=== PATIENT | male | born 1955 | race Caucasian/White ===

== ENCOUNTER 2024-10-12 23:28 | Inpatient (IN) | payer MEDICAID ==
[~2024-10-12] VITALS: Ht 172.7 cm; Wt 49.9 kg
[2024-10-12] MEDS ORDERED: ONDANSETRON 4 MG/2 ML VIAL ONE (23:48)
[2024-10-12] MEDS ORDERED: INSU100V28 SQ (23:56)
[2024-10-13] MEDS: ONDANSETRON 4 MG/2 ML VIAL IV ONE (00:05)
[2024-10-13 00:14] LABS: BASOPHILS % (AUTO) 0.3 % (0.0-2.0); DIFFERENTIAL COMMENT 1; EOSINOPHILS # (AUTO) 0.1 K/uL (0.0-0.7); EOSINOPHILS % (AUTO) 0.7 % (0.0-7.0); HEMATOCRIT 44.8 % (36.7-47.1); HEMOGLOBIN 14.9 g/dL (12.5-16.3); LYMPHOCYTES # (AUTO) 2.3 K/uL (0.8-4.8); LYMPHOCYTES % (AUTO) 29.4 % (20.5-51.5); MEAN CORPUSCULAR HEMOGLOBIN 28.6 uug (23.8-33.4); MEAN CORPUSCULAR HGB CONC 33 g/dL (32.5-36.3); MEAN CORPUSCULAR VOLUME 85.9 fL (73.0-96.2); MONOCYTES # (AUTO) 0.8 K/uL (0.1-1.30); MONOCYTES % (AUTO) 10.4 % (0.0-11.0); NEUTROPHILS # (AUTO) 4.5 K/uL (1.8-8.9); NEUTROPHILS % (AUTO) 59.2 % (38.5-71.5); PLATELET COUNT (AUTO) 198 K/uL (152-348); RED BLOOD CELL COUNT(AUTO) 5.21 MIL/uL (4.06-5.63); WHITE BLOOD COUNT (AUTO) 7.7 K/uL (3.6-10.2)
[2024-10-13] MEDS: IV NORMAL SALINE 500 ML BAG IV ONE ×3 (00:20→02:05)
[2024-10-13] MEDS: ACETAMINOPHEN 500 MG TABLET PO ONE (00:20)
[2024-10-13 00:21] LABS: CREATININE 1.3 mg/dL (0.6-1.3); POTASSIUM 4.4 mmol/L (3.5-5.1)
[2024-10-13] MEDS: KETOROLAC TROMETHAMINE 15 MG INJ IVP ONE (00:21)
[2024-10-13 00:27] LABS: ALBUMIN 4.5 g/dL (3.4-5.0); BILIRUBIN,TOTAL 1.3 mg/dL (0.2-1.0); TOTAL PROTEIN, SERUM 9.2 g/dL (6.4-8.2)
[2024-10-13] MEDS ORDERED: INSULIN REGULAR, HUMAN 1000 UNIT/10 ML VIAL IV ONE (00:30)
[2024-10-13 00:33] LABS: CALCIUM 10.2 mg/dL (8.5-10.1)
[2024-10-13 00:41] LABS: C-REACTIVE PROTEIN 0.07 mg/dL (0.00-0.30)
[2024-10-13] MEDS ORDERED: CEFTRIAXONE /D5W 50ML IVPB **ER PYXIS IV ONE (00:41)
[2024-10-13] MEDS ORDERED: METRONIDAZOLE 500 MG/NS 100ML 100 ML IV ONE (00:41)
[2024-10-13] MEDS ORDERED: MORPHINE SULFATE 4 MG/1 ML DISP.SYRIN ONE ×2 (00:42→02:41)
[2024-10-13] MEDS ORDERED: INSULIN REGULAR, HUMAN 1000 UNIT/10 ML VIAL ONE (00:43)
[2024-10-13] MEDS: MORPHINE SULFATE 4 MG/1 ML DISP.SYRIN IV ONE ×2 (00:49→03:27)
[2024-10-13 00:53] LABS: SITE, VBG LEFT BRACHIAL; VBG AaDO2 92.3 mmHg; VBG BASE EXCESS -13.4 mmol/L (-2.0-3.0); VBG HCO3 11.3 mmol/L (22.0-29.0); VBG MetHb 0.2 % (0.5-1.5); VBG O2HB 92.4 % (0-79.0); VBG PCO2 24.4 mmHg (38.0-54.0); VBG PH 7.284 (7.320-7.430); VBG PO2 69.2 mmHg (23.0-48.0); VBG TOTAL HEMOGLOBIN 14.5 G/dL (13.5-17.5)
[2024-10-13] MEDS: INSULIN REGULAR, HUMAN 1000 UNIT/10 ML VIAL IV ONE (00:54)
[2024-10-13] MEDS: CEFTRIAXONE 1 G in IV DEXTROSE 5% 50 ML IV ONE (01:02)
[2024-10-13] MEDS: METRONIDAZOLE 500 MG/NS 100 ML PIGGYBACK IV ONE (01:30)
[2024-10-13 02:15] LABS: CALCIUM 7.7 mg/dL (8.5-10.1); CREATININE 0.9 mg/dL (0.6-1.3); POTASSIUM 3.6 mmol/L (3.5-5.1)
[2024-10-13] MEDS ORDERED: POTASSIUM CHLORIDE 50 ML ONE ×3 (02:44→08:13)
[2024-10-13 02:58] LABS: PHOSPHOROUS 3.5 mg/dL (2.5-4.9)
[2024-10-13] MEDS: INSULIN REGULAR, HUMAN 100 UNIT in IV NORMAL SALINE 100 ML IV PRN (03:34)
[2024-10-13] MEDS: POTASSIUM CHLORIDE 20 MEQ in IV D5 1/2 NS 1000 ML 1,000 ML IV PRN (03:36)
[2024-10-13 04:25] LABS: CREATININE 0.8 mg/dL (0.6-1.3); POTASSIUM 3.9 mmol/L (3.5-5.1)
[2024-10-13 04:29] LABS: MAGNESIUM 1.6 mg/dL (1.8-2.4); PHOSPHOROUS 2.1 mg/dL (2.5-4.9)
[2024-10-13] MEDS: MAGNESIUM SULFATE/D5W 100 ML IV SCH (05:47)
[2024-10-13] MEDS ORDERED: MAGNESIUM SULFATE/D5W 100 ML ONE (06:12)
[2024-10-13 06:27] LABS: CALCIUM 7.6 mg/dL (8.5-10.1); POTASSIUM 3.4 mmol/L (3.5-5.1)
[2024-10-13 06:31] LABS: PHOSPHOROUS 1.5 mg/dL (2.5-4.9)
[2024-10-13] MEDS ORDERED: INSULIN REGULAR, HUMAN 300 UNITS/3 ML VIAL SQ PRN (06:45)
[2024-10-13] MEDS ORDERED: DEXTROSE 50% 50 ML DISP.SYRIN IV PRN ×2 (06:45→11:45)
[2024-10-13] MEDS: BLOOD SUGAR DIAGNOSTIC 1 EACH STRIP VI SCH ×3 (06:45→11:41)
[2024-10-13] MEDS: INSULIN REGULAR, HUMAN 1000 UNIT/10 ML VIAL SQ PRN ×2 (07:47→11:42)
[2024-10-13] MEDS: IV NS 1000 ML 1,000 ML IV ONE (07:50)
[2024-10-13] MEDS ORDERED: ENOXAPARIN SODIUM 40 MG/0.4 ML DISP.SYRIN SQ ONE (07:52)
[2024-10-13] MEDS: POTASSIUM CHLORIDE 50 ML IV SCH (07:57)
[2024-10-13] MEDS: ENOXAPARIN SODIUM 40 MG/0.4 ML DISP.SYRIN SQ SCH (08:17)
[2024-10-13 09:17] LABS: ALBUMIN 3.1 g/dL (3.4-5.0); BILIRUBIN,DIRECT 0.4 mg/dL (0.0-0.2); BILIRUBIN,TOTAL 0.9 mg/dL (0.2-1.0); TOTAL PROTEIN, SERUM 6.3 g/dL (6.4-8.2)
[2024-10-13] MEDS: POTASSIUM PHOSPHATE MM 15 MMOL in IV NORMAL SALINE 250 ML IV ONE (10:01)
[2024-10-13 11:31] LABS: *BILIRUBIN,URIN 1+ (NEGATIVE); *BLOOD, URINE NEGATIVE (NEGATIVE); *CLARITY,URINE CLEAR (CLEAR); *COLOR,URINE YELLOW (YELLOW); *KETONES,URINE 4+ (NEGATIVE); *PROTEIN,URINE TRACE (NEGATIVE); LEUKOCYTE ESTERASE ,URINE NEGATIVE (NEGATIVE); NITRITE, URINE NEGATIVE (NEGATIVE); PH,URINE 5.5 (5.0-8.0); UGLUCOSE 3+ (NEGATIVE)
[2024-10-13 11:32] LABS: BACTERIA,URINE FEW /HPF (NONE SEEN); WBC,URINE 0-3 /HPF (0-3)
[2024-10-13] MEDS: IV NS 1000 ML 1,000 ML IV PRN (11:45)
[2024-10-13] MEDS ORDERED: FLAS1KIT2 TP (13:29)
[2024-10-13] MEDS ORDERED: FLAS1EAC2 TP (13:29)
[2024-10-13] MEDS ORDERED: ACETAMINOPHEN 325 MG TABLET ONE (15:49)
[2024-10-13] MEDS: ACETAMINOPHEN 325 MG TABLET PO PRN (15:51)
[2024-10-13 17:51] VITALS: BP 106/61; TEMP 98; O2SAT 98
[2024-10-13 19:52] VITALS: BP 106/58; TEMP 97.4; O2SAT 99
[2024-10-13] MEDS: MORPHINE SULFATE 2 MG/1 ML DISP.SYRIN IV PRN (21:06)
[2024-10-13] MEDS: INSULIN REGULAR, HUMAN 300 UNITS/3 ML VIAL SQ PRN (21:40)
[2024-10-13] MEDS: INSULIN GLARGINE,HUM 300 UNITS/3 ML CARTRIDGE SQ SCH (21:41)
[2024-10-14] MEDS: HYDROMORPHONE 1 MG/1 ML DISP.SYRIN IV ONE (01:15)
[2024-10-14 06:11] LABS: HEPATITIS A AB, TOTAL Positive (Negative); HEPATITIS B CORE AB, TOTAL Positive (Negative); HEPATITIS B SURFACE AB, QUAL Reactive (.); HEPATITIS C VIRUS ANTIBODY Reactive (Non Reactive)
[2024-10-14 08:18] LABS: BASOPHILS % (AUTO) 0.6 % (0.0-2.0); EOSINOPHILS % (AUTO) 1.4 % (0.0-7.0); HEMATOCRIT 34.3 % (36.7-47.1); HEMOGLOBIN 11.5 g/dL (12.5-16.3); LYMPHOCYTES # (AUTO) 0.7 K/uL (0.8-4.8); LYMPHOCYTES % (AUTO) 25.6 % (20.5-51.5); MEAN CORPUSCULAR HEMOGLOBIN 28.2 uug (23.8-33.4); MEAN CORPUSCULAR HGB CONC 33 g/dL (32.5-36.3); MEAN CORPUSCULAR VOLUME 84.4 fL (73.0-96.2); MONOCYTES # (AUTO) 0.3 K/uL (0.1-1.30); MONOCYTES % (AUTO) 9.9 % (0.0-11.0); NEUTROPHILS # (AUTO) 1.8 K/uL (1.8-8.9); NEUTROPHILS % (AUTO) 62.5 % (38.5-71.5); PLATELET COUNT (AUTO) 88 K/uL (152-348); RED BLOOD CELL COUNT(AUTO) 4.07 MIL/uL (4.06-5.63); RED CELL DISTRIBUTION WIDTH 15.3 % (12.1-16.2); WHITE BLOOD COUNT (AUTO) 2.9 K/uL (3.6-10.2)
[2024-10-14 08:23] VITALS: BP 127/74; TEMP 97.6; O2SAT 99
[2024-10-14 08:29] LABS: DIFFERENTIAL COMMENT 1
[2024-10-14 08:33] LABS: CALCIUM 8.6 mg/dL (8.5-10.1); CARBON DIOXIDE 27 mmol/L (21-32); CHLORIDE 105 mmol/L (98-107); CREATININE 0.6 mg/dL (0.6-1.3); GLUCOSE 165 mg/dL (74-106); MAGNESIUM 1.7 mg/dL (1.8-2.4); PHOSPHOROUS 2.6 mg/dL (2.5-4.9); POTASSIUM 3.8 mmol/L (3.5-5.1); SODIUM SERUM 141 mmol/L (136-145); UREA NITROGEN, BLOOD 8 mg/dL (7-18)
[2024-10-14] MEDS: MAGNESIUM OXIDE 400 MG TABLET PO ONE (10:49)
[2024-10-14 11:09] VITALS: BP 129/77; TEMP 98.1; O2SAT 96
[2024-10-14] MEDS: ONDANSETRON 4 MG/2 ML VIAL IV PRN (13:59)
[2024-10-14 15:11] VITALS: BP 113/71; TEMP 97.6; O2SAT 98
[2024-10-14] MEDS: GLUCERNA SHAKE 237 ML CAN PO SCH (16:28)
[2024-10-14 19:35] VITALS: BP 114/67; TEMP 98.1; O2SAT 95
[2024-10-15 05:36] VITALS: BP 113/69; TEMP 97.8; O2SAT 97
[2024-10-15 06:50] LABS: CALCIUM 8.9 mg/dL (8.5-10.1); CARBON DIOXIDE 27 mmol/L (21-32); CHLORIDE 104 mmol/L (98-107); CREATININE 0.5 mg/dL (0.6-1.3); GLUCOSE 192 mg/dL (74-106); MAGNESIUM 1.8 mg/dL (1.8-2.4); POTASSIUM 3.2 mmol/L (3.5-5.1); SODIUM SERUM 140 mmol/L (136-145); UREA NITROGEN, BLOOD 6 mg/dL (7-18)
[2024-10-15 10:57] VITALS: BP 126/62; TEMP 97.6; O2SAT 96
[2024-10-15] MEDS: POTASSIUM CHLORIDE 20 MEQ TAB.PRT.SR PO ONE (12:59)
[2024-10-15 14:53] VITALS: BP 113/74; TEMP 98.2; O2SAT 97
[2024-10-15 19:51] VITALS: BP 130/80; TEMP 98.4; O2SAT 98
[2024-10-15] MEDS: TEMAZEPAM 7.5 MG CAPSULE PO PRN (23:26)
[2024-10-16 06:10] VITALS: BP 120/78; TEMP 98.4; O2SAT 96
[2024-10-16 07:15] LABS: EOSINOPHILS # (AUTO) 0.1 K/uL (0.0-0.7); EOSINOPHILS % (AUTO) 2.4 % (0.0-7.0); HEMATOCRIT 33.1 % (36.7-47.1); HEMOGLOBIN 11.2 g/dL (12.5-16.3); LYMPHOCYTES # (AUTO) 1.1 K/uL (0.8-4.8); LYMPHOCYTES % (AUTO) 40.9 % (20.5-51.5); MEAN CORPUSCULAR HEMOGLOBIN 28.4 uug (23.8-33.4); MEAN CORPUSCULAR HGB CONC 34 g/dL (32.5-36.3); MEAN CORPUSCULAR VOLUME 83.8 fL (73.0-96.2); MONOCYTES # (AUTO) 0.3 K/uL (0.1-1.30); MONOCYTES % (AUTO) 12.3 % (0.0-11.0); NEUTROPHILS # (AUTO) 1.2 K/uL (1.8-8.9); NEUTROPHILS % (AUTO) 43.4 % (38.5-71.5); PLATELET COUNT (AUTO) 91 K/uL (152-348); RED BLOOD CELL COUNT(AUTO) 3.95 MIL/uL (4.06-5.63); RED CELL DISTRIBUTION WIDTH 15.1 % (12.1-16.2); WHITE BLOOD COUNT (AUTO) 2.8 K/uL (3.6-10.2)
[2024-10-16 07:35] LABS: DIFFERENTIAL COMMENT 1
[2024-10-16 07:47] LABS: ALANINE AMINOTRANSFERASE 219 U/L (16-63); ALBUMIN 3.2 g/dL (3.4-5.0); ALKALINE PHOSPHATASE 58 U/L (50-136); ASPARTATE AMINOTRANSFERASE 135 U/L (15-37); BILIRUBIN,DIRECT 0.4 mg/dL (0.0-0.2); BILIRUBIN,TOTAL 0.8 mg/dL (0.2-1.0); CALCIUM 8.6 mg/dL (8.5-10.1); CARBON DIOXIDE 31 mmol/L (21-32); CHLORIDE 103 mmol/L (98-107); CHOLESTEROL 160 mg/dL (<200); CREATININE 0.4 mg/dL (0.6-1.3); GLUCOSE 148 mg/dL (74-106); HDL CHOLESTEROL 49 mg/dL (40-60); MAGNESIUM 1.7 mg/dL (1.8-2.4); PHOSPHOROUS 2.7 mg/dL (2.5-4.9); POTASSIUM 3.2 mmol/L (3.5-5.1); SODIUM SERUM 142 mmol/L (136-145); TOTAL PROTEIN, SERUM 6.7 g/dL (6.4-8.2); TRIGLYCERIDES 58 MG/DL (30-150); UREA NITROGEN, BLOOD 10 mg/dL (7-18)
[2024-10-16 07:53] LABS: THYROID STIMULATING HORMONE 1.153 mIU/mL (0.358-3.740)
[2024-10-16 08:05] LABS: IRON, SERUM 118 ug/dL (50-175)
[2024-10-16 11:19] VITALS: BP 125/77; TEMP 98.2; O2SAT 98
[2024-10-16] MEDS: POTASSIUM CHLORIDE 20 MEQ TAB.PRT.SR PO ONE (12:26)
[2024-10-16] MEDS: MAGNESIUM OXIDE 400 MG TABLET PO ONE (12:26)
[2024-10-16 12:36] LABS: HIV-1 p24 ANTIGEN NON REACTIVE (NONREACTIVE); HIV-1/2 ANTIBODY NON REACTIVE (NONREACTIVE)
[2024-10-16 12:45] LABS: AMYLASE 58 U/L (25-115)
[2024-10-16 12:51] LABS: LIPASE 25 U/L (16-77)
[2024-10-16 12:57] LABS: FERRITIN 591 ng/mL (26-388)
[2024-10-16 13:36] LABS: *RHEUMATOID FACTOR SCREEN NEGATIVE (NEGATIVE)
[2024-10-16 15:52] VITALS: BP 106/70; TEMP 98.9; O2SAT 99
[2024-10-16] MEDS ORDERED: SWABABLE VALVE TRANSFER SET EA MC ONE (17:29)
[2024-10-16] MEDS ORDERED: IOHEXOL 300MG/ML 100 ML INFUS..BTL ONE (17:29)
[2024-10-16] MEDS ORDERED: IV NORMAL SALINE 250 ML IV ONE (17:29)
[2024-10-16 19:38] VITALS: BP 122/72; TEMP 98.6; O2SAT 98
[2024-10-17 05:12] LABS: HEPATITIS B SURFACE AG Negative (Negative)
[2024-10-17 06:07] LABS: HEPATITIS A AB, IgM Negative (Negative); HEPATITIS B CORE AB, IgM Negative (Negative)
[2024-10-17 06:33] VITALS: BP 91/56; TEMP 98.5; O2SAT 98
[2024-10-17 06:51] LABS: BASOPHILS % (AUTO) 0.6 % (0.0-2.0); EOSINOPHILS # (AUTO) 0.1 K/uL (0.0-0.7); EOSINOPHILS % (AUTO) 2.4 % (0.0-7.0); HEMATOCRIT 32.8 % (36.7-47.1); HEMOGLOBIN 11.2 g/dL (12.5-16.3); LYMPHOCYTES # (AUTO) 1.2 K/uL (0.8-4.8); LYMPHOCYTES % (AUTO) 34.9 % (20.5-51.5); MEAN CORPUSCULAR HEMOGLOBIN 28.7 uug (23.8-33.4); MEAN CORPUSCULAR HGB CONC 34 g/dL (32.5-36.3); MEAN CORPUSCULAR VOLUME 83.9 fL (73.0-96.2); MONOCYTES # (AUTO) 0.4 K/uL (0.1-1.30); MONOCYTES % (AUTO) 11.9 % (0.0-11.0); NEUTROPHILS # (AUTO) 1.7 K/uL (1.8-8.9); NEUTROPHILS % (AUTO) 50.2 % (38.5-71.5); PLATELET COUNT (AUTO) 103 K/uL (152-348); RED BLOOD CELL COUNT(AUTO) 3.91 MIL/uL (4.06-5.63); RED CELL DISTRIBUTION WIDTH 14.8 % (12.1-16.2); WHITE BLOOD COUNT (AUTO) 3.4 K/uL (3.6-10.2)
[2024-10-17 07:04] LABS: DIFFERENTIAL COMMENT 1
[2024-10-17 07:06] LABS: ALANINE AMINOTRANSFERASE 238 U/L (16-63); ALBUMIN 3.2 g/dL (3.4-5.0); ALKALINE PHOSPHATASE 62 U/L (50-136); ASPARTATE AMINOTRANSFERASE 171 U/L (15-37); BILIRUBIN,DIRECT 0.4 mg/dL (0.0-0.2); BILIRUBIN,TOTAL 0.6 mg/dL (0.2-1.0); CALCIUM 8.9 mg/dL (8.5-10.1); CARBON DIOXIDE 33 mmol/L (21-32); CHLORIDE 102 mmol/L (98-107); CREATININE 0.4 mg/dL (0.6-1.3); GLUCOSE 69 mg/dL (74-106); MAGNESIUM 1.9 mg/dL (1.8-2.4); PHOSPHOROUS 3.2 mg/dL (2.5-4.9); POTASSIUM 3.5 mmol/L (3.5-5.1); SODIUM SERUM 140 mmol/L (136-145); TOTAL PROTEIN, SERUM 6.9 g/dL (6.4-8.2); UREA NITROGEN, BLOOD 9 mg/dL (7-18)
[2024-10-17 08:07] LABS: *IMMUNOGLOBULIN G, SERUM 1211 mg/dL (603-1613); AFP, TUMOR MARKER 3.7 ng/mL (0.0-8.4); FOLATE (FOLIC ACID), SERUM 12.3 ng/mL (>3.0); IMMUNOGLOBULIN A, SERUM 203 mg/dL (61-437); IMMUNOGLOBULIN M, SERUM 465 mg/dL (20-172)
[2024-10-17 11:00] VITALS: BP 123/72; TEMP 98.1; O2SAT 98
[2024-10-17 11:09] LABS: FREE KAPPA LT CHAINS SERUM 15.4 mg/L (3.3-19.4); FREE LAMBDA LT CHAIN SERUM 19.2 mg/L (5.7-26.3)
[2024-10-17 13:07] LABS: *ANTI-SCLERODERMA-70 AB <0.2 AI (0.0-0.9); *RNP ANTIBODIES <0.2 AI (0.0-0.9); *SJOGREN'S ANTI-SS-A 0.2 AI (0.0-0.9); *SJOGREN'S ANTI-SS-B <0.2 AI (0.0-0.9); *SMITH ANTIBODIES <0.2 AI (0.0-0.9); ANTI-DNA(DS) AB, QN 22 IU/mL (0-9); ANTI-NUCLEAR AB DIRECT Positive (Negative)
[2024-10-17 16:19] VITALS: BP 108/67; TEMP 98.3; O2SAT 98
[2024-10-17] MEDS ORDERED: METF-442 PO (17:09)
[2024-10-17] MEDS ORDERED: FAMO10TA41 PO (17:09)
[2024-10-17] MEDS ORDERED: TAMS-3 PO (17:09)
[2024-10-17] MEDS ORDERED: FOLI1TAB94 PO (17:10)
[2024-10-17] MEDS ORDERED: THIA100T74 PO (17:10)
[2024-10-17 19:17] VITALS: BP 102/67; TEMP 97.4; O2SAT 98
[2024-10-23 10:10] LABS: A/G RATIO 1.1 (0.7-1.7); ALBUMIN 3.4 g/dL (2.9-4.4); ALPHA-1-GLOBULIN 0.2 g/dL (0.0-0.4); ALPHA-2-GLOBULIN 0.7 g/dL (0.4-1.0); BETA GLOBULIN 0.6 g/dL (0.7-1.3); GAMMA GLOBULIN 1.5 g/dL (0.4-1.8); M-SPIKE Not Observed g/dL (Not Observed); PROTEIN, TOTAL 6.4 g/dL (6.0-8.5)
== END 2024-10-17 21:40 | disposition home or self-care (01) | DRG 420 ==
LOC: ER 23:32 → SA1 10-13 01:06 → UNDOADMIN 10-13 05:21 → TRANSITION 10-13 05:21 → MEDSURG1 10-13 17:13 → MEDSURG3 10-14 06:31
PROVIDERS: ADMIT Nurse Practitioner Acute Care; ATTEND Internal Medicine
DX: E11.10 Type 2 diabetes mellitus with ketoacidosis without coma (principal); N17.0 Acute kidney failure with tubular necrosis; D61.818 Other pancytopenia; E83.39 Other disorders of phosphorus metabolism; K80.20 Calculus of gallbladder without cholecystitis without obstruction; K74.60 Unspecified cirrhosis of liver; E87.6 Hypokalemia; N20.0 Calculus of kidney; Z79.4 Long term (current) use of insulin; Z87.891 Personal history of nicotine dependence; R76.0 Raised antibody titer; E83.10 Disorder of iron metabolism, unspecified; K29.00 Acute gastritis without bleeding; R62.7 Adult failure to thrive; E88.09 Other disorders of plasma-protein metabolism, not elsewhere classified; D75.9 Disease of blood and blood-forming organs, unspecified; Z68.1 Body mass index [BMI] 19.9 or less, adult; N40.0 Benign prostatic hyperplasia without lower urinary tract symptoms; R16.1 Splenomegaly, not elsewhere classified; Z91.148 Patient's other noncompliance with medication regimen for other reason
CPT/HCPCS: 36415; 36600; 71045; 82105; 82746; 82784; 83550; 83605; 83690; 83735; 84100; 84153; 84155; 84165; 84443; 85025; 85610; 85730; 86038; 86140; 86334; 86430; 86704; 86705; 86706; 86708; 86709; 86803; 87340; 87806; A4606; A4663; A9150; G0378; J0696; J1171; J1650; J1815; J1885; J2270; J2405; J3475; J3480; J3490; J7040; Q9967

== ENCOUNTER 2025-03-31 00:45 | Inpatient (IN) | payer MEDICAID, OTHER ==
[~2025-03-31] VITALS: Ht 172.7 cm; Wt 49.9 kg
[2025-03-31] VITALS (17 sets, daily range): BP systolic 70–102; BP diastolic 51–69; TEMP 97.6–98.7; O2SAT 98–99
[~2025-03-31 00:45] MED LIST: FAMO10TA41 PO; FLAS1EAC2 TP; FLAS1KIT2 TP; FOLI1TAB94 PO; INSU100V28 SQ; METF-442 PO; TAMS-3 PO; THIA100T74 PO
[2025-03-31] MEDS ORDERED: diphenhydrAMINE 50 MG/1 ML VIAL ONE (01:32)
[2025-03-31] MEDS ORDERED: PROCHLORPERAZINE EDISYLATE 10 MG/2 ML VIAL ONE (01:32)
[2025-03-31] MEDS ORDERED: HYDROMORPHONE 1 MG/1 ML DISP.SYRIN ONE (01:33)
[2025-03-31] MEDS: diphenhydrAMINE 50 MG/1 ML VIAL IV ONE (01:37)
[2025-03-31] MEDS: HYDROMORPHONE 1 MG/1 ML DISP.SYRIN IV ONE (01:37)
[2025-03-31] MEDS: PROCHLORPERAZINE EDISYLATE 10 MG/2 ML VIAL IV ONE (01:37)
[2025-03-31] MEDS: IV NORMAL SALINE 1000 ML BAG IV ONE (01:38)
[2025-03-31 01:43] LABS: CREATININE 1.2 mg/dL (0.6-1.3); SODIUM SERUM 135 mmol/L (136-145); UREA NITROGEN, BLOOD 17 mg/dL (7-18)
[2025-03-31 01:44] LABS: PLATELET COUNT (AUTO) 221 K/uL (152-348); RED BLOOD CELL COUNT(AUTO) 5.79 MIL/uL (4.06-5.63); RED CELL DISTRIBUTION WIDTH 15.7 % (12.1-16.2); WHITE BLOOD COUNT (AUTO) 11.7 K/uL (3.6-10.2)
[2025-03-31 01:48] LABS: ABG BASE EXCESS -22.1 mmol/L (-2.0-3.0); ABG HCO3 5.4 mmol/L (21.0-28.0); ABG PCO2 17.6 mmHg (35.0-48.0); ABG PH 7.102 (7.350-7.450); ABG PO2 120.3 mmHg (83.0-108.0); ABG SITE RIGHT RADIAL; ABG TOTAL HEMOGLOBIN 16.1 G/dL (13.5-17.5); AaDO2 97.1 mmHg; FIO2 21.0 %
[2025-03-31 01:53] LABS: ASPARTATE AMINOTRANSFERASE 103 U/L (15-37); TOTAL PROTEIN, SERUM 10.3 g/dL (6.4-8.2)
[2025-03-31 02:06] LABS: LACTIC ACID 4.4 mmol/L (0.4-2.0)
[2025-03-31 02:12] LABS: *BILIRUBIN,URIN NEGATIVE (NEGATIVE); *BLOOD, URINE 1+ (NEGATIVE); *CLARITY,URINE CLEAR (CLEAR); *COLOR,URINE YELLOW (YELLOW); *KETONES,URINE 4+ (NEGATIVE); *PROTEIN,URINE 2+ (NEGATIVE); *UROBILINOGEN,URINE 0.2 E.U./dl (NORMAL); LEUKOCYTE ESTERASE ,URINE NEGATIVE (NEGATIVE); NITRITE, URINE NEGATIVE (NEGATIVE); UGLUCOSE 2+ (NEGATIVE)
[2025-03-31] MEDS ORDERED: INSULIN REGULAR, HUMAN 1000 UNIT/10 ML VIAL ONE (02:25)
[2025-03-31] MEDS ORDERED: POTASSIUM CHLORIDE 20 MEQ TAB.PRT.SR ONE (02:25)
[2025-03-31] MEDS: POTASSIUM CHLORIDE 20 MEQ TAB.PRT.SR PO ONE (02:28)
[2025-03-31] MEDS ORDERED: SWABABLE VALVE TRANSFER SET EA MC ONE (02:41)
[2025-03-31] MEDS ORDERED: IV NORMAL SALINE 250 ML IV ONE (02:41)
[2025-03-31] MEDS ORDERED: IOHEXOL 350 100 ML INFUS..BTL ONE (02:41)
[2025-03-31 02:52] LABS: SQUAMOUS EPITHELIAL CELL,UR NONE SEEN /HPF (NONE SEEN)
[2025-03-31] MEDS: INSULIN REGULAR, HUMAN 100 UNIT in IV NORMAL SALINE 99 ML IV PRN ×2 (03:11→09:21)
[2025-03-31] MEDS ORDERED: ONDANSETRON 4 MG/2 ML VIAL IV PRN (04:30)
[2025-03-31] MEDS ORDERED: ACETAMINOPHEN 650 MG SUPP.RECT RC PRN (04:30)
[2025-03-31] MEDS ORDERED: SODIUM BICARBONATE 8.4% 50 MEQ/50 ML DISP.SYRIN IV ONE (05:12)
[2025-03-31] MEDS: SODIUM BICARBONATE 8.4% 150 MEQ in IV D5W 1000ML 1,000 ML IV ONE (05:56)
[2025-03-31] MEDS ORDERED: MORPHINE SULFATE 2 MG/1 ML DISP.SYRIN IV PRN (06:00)
[2025-03-31] MEDS ORDERED: MORPHINE SULFATE 4 MG/1 ML DISP.SYRIN IV PRN (06:00)
[2025-03-31] MEDS: BLOOD SUGAR DIAGNOSTIC 1 EACH STRIP VI SCH ×2 (06:03→17:53)
[2025-03-31 06:12] LABS: ABG BASE EXCESS -18.6 mmol/L (-2.0-3.0); ABG HCO3 8.1 mmol/L (21.0-28.0); ABG PCO2 22.6 mmHg (35.0-48.0); ABG PH 7.170 (7.350-7.450); ABG PO2 84.2 mmHg (83.0-108.0); ABG SITE LEFT RADIAL; ABG TOTAL HEMOGLOBIN 14.0 G/dL (13.5-17.5); AaDO2 93.9 mmHg; FIO2 21.0 %
[2025-03-31] MEDS: PANTOPRAZOLE SODIUM 40 MG VIAL IV SCH (09:21)
[2025-03-31] MEDS: HEPARIN SODIUM,PORCINE 5,000 UNITS/ML VIAL SQ SCH (09:21)
[2025-03-31 09:43] LABS: CREATININE 0.8 mg/dL (0.6-1.3); SODIUM SERUM 135.0 mmol/L (136-145); UREA NITROGEN, BLOOD 14.0 mg/dL (7-18)
[2025-03-31] MEDS: IV D5 1/2 NS 1000 ML 1,000 ML IV PRN (10:30)
[2025-03-31 10:32] LABS: CREATININE 1.2 mg/dL (0.6-1.3); SODIUM SERUM 137.0 mmol/L (136-145); UREA NITROGEN, BLOOD 19.0 mg/dL (7-18)
[2025-03-31] MEDS: MAGNESIUM SULFATE/D5W 100 ML IV SCH (11:28)
[2025-03-31 13:13] LABS: PLATELET COUNT (AUTO) 151 K/uL (152-348); RED BLOOD CELL COUNT(AUTO) 4.65 MIL/uL (4.06-5.63); RED CELL DISTRIBUTION WIDTH 15.5 % (12.1-16.2); WHITE BLOOD COUNT (AUTO) 10.3 K/uL (3.6-10.2)
[2025-03-31 13:29] LABS: CREATININE 0.8 mg/dL (0.6-1.3); SODIUM SERUM 136.0 mmol/L (136-145); UREA NITROGEN, BLOOD 12.0 mg/dL (7-18)
[2025-03-31 15:32] LABS: CREATININE 0.9 mg/dL (0.6-1.3); SODIUM SERUM 137.0 mmol/L (136-145); UREA NITROGEN, BLOOD 12.0 mg/dL (7-18)
[2025-03-31] MEDS ORDERED: INSU100V7 SQ (16:15)
[2025-03-31] MEDS: POTASSIUM CHLORIDE 50 ML IV SCH (16:33)
[2025-03-31] MEDS ORDERED: POTASSIUM PHOSPHATE MM 30 MMOL in IV NORMAL SALINE 250 ML IV ONE (17:30)
[2025-03-31] MEDS ORDERED: DEXTROSE 50% 50 ML DISP.SYRIN IV PRN (17:45)
[2025-03-31] MEDS: INSULIN REGULAR, HUMAN 1000 UNIT/10 ML VIAL SQ PRN (17:54)
[2025-03-31 18:32] LABS: CREATININE 0.7 mg/dL (0.6-1.3); SODIUM SERUM 136.0 mmol/L (136-145); UREA NITROGEN, BLOOD 11.0 mg/dL (7-18)
[2025-03-31] MEDS: POTASSIUM PHOSPHATE MM 15 MMOL in IV NORMAL SALINE 250 ML IV SCH (20:10)
[2025-03-31] MEDS: INSULIN GLARGINE,HUM 300 UNITS/3 ML CARTRIDGE SQ SCH (20:59)
[2025-03-31] MEDS: INSULIN REGULAR, HUMAN 300 UNITS/3 ML VIAL SQ PRN (21:15)
[2025-04-01] VITALS (15 sets, daily range): BP systolic 76–113; BP diastolic 48–75; TEMP 98.4; O2SAT 96–98
[2025-04-01] MEDS: ACETAMINOPHEN 325 MG TABLET PO PRN (04:49)
[2025-04-01 05:07] LABS: PLATELET COUNT (AUTO) 126 K/uL (152-348); RED BLOOD CELL COUNT(AUTO) 4.62 MIL/uL (4.06-5.63); RED CELL DISTRIBUTION WIDTH 15.3 % (12.1-16.2); WHITE BLOOD COUNT (AUTO) 7.4 K/uL (3.6-10.2)
[2025-04-01] MEDS ORDERED: MORPHINE SULFATE 4 MG/1 ML DISP.SYRIN IV PRN (06:45)
[2025-04-01] MEDS: IV NS 1000 ML 1,000 ML IV PRN (08:35)
[2025-04-01] MEDS: INSULIN REGULAR, HUMAN 1000 UNIT/10 ML VIAL SQ PRN (11:44)
[2025-04-01] MEDS ORDERED: INSULIN REGULAR, HUMAN 300 UNITS/3 ML VIAL SQ PRN (11:45)
[2025-04-01] MEDS ORDERED: DEXTROSE 50% 50 ML DISP.SYRIN IV PRN (11:45)
[2025-04-01] MEDS: BLOOD SUGAR DIAGNOSTIC 1 EACH STRIP VI SCH (11:48)
[2025-04-01] MEDS ORDERED: INSU100V7 SQ (13:04)
[2025-04-02] MEDS ORDERED: PANTOPRAZOLE SODIUM 40 MG TABLET.DR PO SCH (07:00)
== END 2025-04-01 14:48 | disposition home or self-care (01) | DRG 420 ==
LOC: ER 00:55 → CCU 07:29
PROVIDERS: ADMIT Registered Nurse Psychiatric/Mental Health; ATTEND Registered Nurse Psychiatric/Mental Health
DX: E11.10 Type 2 diabetes mellitus with ketoacidosis without coma (principal); K74.60 Unspecified cirrhosis of liver; D68.69 Other thrombophilia; E86.0 Dehydration; K76.0 Fatty (change of) liver, not elsewhere classified; K80.20 Calculus of gallbladder without cholecystitis without obstruction; Z79.4 Long term (current) use of insulin; N20.0 Calculus of kidney; D72.829 Elevated white blood cell count, unspecified; Z87.891 Personal history of nicotine dependence; R94.31 Abnormal electrocardiogram [ECG] [EKG]; M54.59 Other low back pain; Z79.899 Other long term (current) drug therapy; Z79.84 Long term (current) use of oral hypoglycemic drugs; K29.70 Gastritis, unspecified, without bleeding
CPT/HCPCS: 36415; 36600; 71045; 82803; 83605; 83690; 83735; 84100; 84484; 85025; 87040; A4606; A4663; G0378; J0780; J1171; J1200; J1644; J1815; J2470; J3475; J3480; J3490; J7040; J7070; Q9967